=== PATIENT | female | born 1935 | race African-American/Black ===

== ENCOUNTER 2018-02-01 10:13 | Day surgery (SDC) | payer OTHER ==
[2018-01-31 13:40] VITALS: BMI 27.3
[~2018-02-01 10:13] MED LIST: ACETAMINOPHEN 325 MG TABLET (FP) PO PRN; OFLOXACIN 0.3% OPHTHALMIC SOLUTION 5 ML BOTTLE OP SCH
[2018-02-01] MEDS ORDERED: OFLOXACIN 0.3% OPHTHALMIC SOLUTION 5 ML BOTTLE ONE (11:12)
[2018-02-01] MEDS ORDERED: OFLOXACIN 0.3% OPHTHALMIC SOLUTION 5 ML BOTTLE OS ONE ×3 (11:15→11:25)
[2018-02-01] MEDS ORDERED: EPINEPHrine/PF 1 MG/1 ML (1:1,000) AMPULE ONE (12:04)
[2018-02-01] MEDS ORDERED: ACETYLCHOLINE 1:100 INTRA-OCUL 20 MG/2 ML KIT ONE (12:04)
[2018-02-01] MEDS ORDERED: LIDOCAINE HCL/PF 2% SDV 5ML VIAL ONE (12:11)
[2018-02-01] MEDS ORDERED: PROPOFOL 20 ML ONE (12:12)
[2018-02-01] MEDS ORDERED: POVIDONE-IODINE 5% OPHTHALMIC PREP 30 ML SOLUTION OS ONE (12:33)
[2018-02-01] MEDS ORDERED: LIDOCAINE HCL 1% PRESERVATIVE FREE - 30ML VIAL IO ONE (12:37)
[2018-02-01] MEDS ORDERED: ACETYLCHOLINE 1:100 INTRA-OCUL 20 MG/2 ML KIT IO ONE (12:37)
[2018-02-01] MEDS ORDERED: CHONDROITIN SU A/HYALUR SOD 1 KIT IO ONE (12:37)
[2018-02-01] MEDS ORDERED: FLUORESCEIN NA 1 EA STRIP ONE (12:47)
[2018-02-01] MEDS ORDERED: ePHEDrine SULFATE 50 MG/1 ML AMPULE ONE (12:52)
[2018-02-01 14:43] VITALS: BP 155/98; TEMP 97.3
[2018-02-01 14:47] VITALS: PULSE 63
--- NOTE | 2018-02-01 15:20 | OP ---
DATE OF OPERATION: DATE OF DICTATION: 02/01/2018 PREOPERATIVE DIAGNOSIS: Ruptured globe with iris prolapse, left eye. POSTOPERATIVE DIAGNOSIS: Ruptured globe with iris prolapse, left eye. PROCEDURE: Repair of ruptured globe with superficial keratectomy and excision of iris, left eye. ANESTHESIA: Laryngeal mask anesthesia. COMPLICATIONS: None. PROCEDURE: The patient was brought to the operating room and correctly identified along with the operative site. She was then placed under general anesthesia with laryngeal mask anesthesia. She was then prepped and draped in the usual sterile fashion, including 5% Betadine solution in the conjunctival sac and an eyelid drape. An eyelid speculum was then placed into the left eye. The eye was then inspected. An Irregularly shaped pupil with evidence of iris prolapse was noted superonasally. A Weck spear was used to see if the iris was in fact externally exposed; however, this did not show any movement of the iris intraocularly. Two paracentesis ports were created and 1% lidocaine, preservative free was given intracamerally, as well as Viscoat to stabilize the anterior chamber. An attempt was made to sweep the iris from within using the Viscoat cannula; however, this was not successful. Viscoat was injected in the area of the iris prolapse to tamponade any further prolapse Once again the area of iris prolapse was inspected and using a Colibri forceps the iris was attempted to be grasped. An intact overlying Descemet's membrane was noted over the iris. There was a significant amount of corneal scarring which seemed to be covering the area of iris prolapse and obscuring any view of the corneal rupture. The decision was then made to perform a superficial keratectomy. A 57 blade was used to perform a superficial keratectomy. The tisses was sent for histophathlogic evaluation. Iris tissue was noted to be embedded within the cornea. With the cornea now expoased, a a 1.6 mm linear corneal rupture was noted at the limbus in the superonasal quadrant. Further Viscoat was then used to tamponade any iris prolapse and 2 single 10-0 nylon sutures were placed within the wound. Using bimanual IA, the Viscoelastic was irrigated and aspirated from the eye. At the end of the procedure, the anterior chamber was noted to be stable. The wounds were all tested with fluorescein staining and noted to be justin negative. The pupil was noted to be a little bit more centered; however, there was still some corectopia and some loss of iris superonasally. Topical vancomycin was placed, the eye patched and shielded and the patient discharged from the operating room in a stable condition after being aroused from laryngeal mask anesthesia without complication. GERMAN HAYES M.D. [id number] MTDD
--- NOTE | 2018-02-03 15:31 | PATH ---
Surgical Pathology Report Patient Name: ASCENCION OLIVIA Med. Rec. #: [id number] /Age/Gender: 1935 (Age: 82) / F Account: [id number] Location: [facility] Taken: 02/01/2018 Received: 02/02/2018 Reported: 02/03/2018 Physicians: Guille Genao M.D. Specimen(s) Received CORNEAL SCAR LEFT EYE Clinical History Repair ruptured globe left eye Final Diagnosis CORNEAL SCAR WITH IRIS, LEFT EYE, BIOPSY: CORNEAL TISSUE WITH FIBROSIS, DYSTROPHIC CALCIFICATION, AND FOCAL MELANIN PIGMENT DEPOSITION. Electronically Signed Wan Bell M.D. Gross Description Received in formalin labeled "corneal scar with iris," is a 0.3 cm in greatest dimension waite brown soft tissue fragment. The specimen is submitted in toto in one cassette. 02/02/201802/02/2018
== END 2018-02-01 14:45 | disposition home or self-care (01) ==
LOC: JASU-SURG 10:13
PROVIDERS: ATTEND Ophthalmology
PROC: 08D Eye, Extraction (ICD-10-PCS; 2018-02-01)
PROC: 08Q9XZZ Repair Left Cornea, External Approach (ICD-10-PCS; principal; 2018-02-01 12:00)
DX: S05.22XA Ocular laceration and rupture with prolapse or loss of intraocular tissue, left eye, initial encounter (principal); X58.XXXA Exposure to other specified factors, initial encounter; Y93.9 Activity, unspecified; Y92.9 Unspecified place or not applicable
CPT/HCPCS: 88304-TC